=== PATIENT | female | born 1995 | race Caucasian/White ===

== ENCOUNTER 2019-02-27 19:15 | Emergency (ER) | payer OTHER ==
[~2019-02-27] VITALS: Ht 165.1 cm; Wt 82.2 kg
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
[2019-02-27 19:55] LABS: BASOPHILS # (AUTO) 0.11 x10^3/uL (0-0.1); BASOPHILS % (AUTO) 1 % (0-1); EOSINOPHILS # (AUTO) 0.17 x10^3/uL (0-0.4); EOSINOPHILS % (AUTO) 2 % (1-7); LYMPHOCYTES # (AUTO) 3.33 x10^3/uL (1-3.4); LYMPHOCYTES % (AUTO) 31 % (22-44); MD NO; MEAN CORPUSCULAR HEMOGLOBIN 27.9 pg (27.0-34.8); MEAN CORPUSCULAR HGB CONC 32.2 g/dL (32.4-35.8); MEAN CORPUSCULAR VOLUME 86.6 fL (80-100); MEAN PLATELET VOLUME 8.4 fL (7.4-10.4); MONOCYTES # (AUTO) 0.72 x10^3/uL (0.2-0.8); MONOCYTES % (AUTO) 7 % (2-9); NEUTROPHILS % (AUTO) 60 % (42-75); PLATELET COUNT 405 x10^3/uL (130-400); RED BLOOD COUNT 4.69 x10^6/uL (3.82-5.3); RED CELL DISTRIBUTION WIDTH 15.1 % (9.6-15.2)
[2019-02-27 19:56] LABS: INTERNATIONAL NORMALIZED RATIO 0.95 (0.93-1.1)
[2019-02-27 19:58] LABS: ANION GAP 8 mmol/L (5-15); CALCIUM 9.5 mg/dL (8.5-10.1); CHLORIDE 107 mmol/L (98-107); CREATININE 0.89 mg/dL (0.55-1.02)
--- NOTE | 2019-02-27 20:08 | NUR ---
PT. IS OUT OF ROOM FOR IMAGING.
--- NOTE | 2019-02-27 20:41 | NUR ---
PT. RESTING ON GURNEY WITH NADN. DENIES NEEDS. VS UPDATED AND STABLE. CALL LIGHT IN REACH.
[2019-02-27 21:14] VITALS: BP 128/83
--- NOTE | 2019-02-27 21:20 | NUR ---
ORTHOSTATICS COMPLETED PER ORDER. PT. AMBULATORY DOWN LOMBARDI TO BR WITH STEADY GAIT. ORTHOS CHARTED AND REPORTED TO DR. ANDRES.
== END 2019-02-27 22:02 | disposition home or self-care (01) ==
LOC: ED 20:50
DX: O72.1 Other immediate postpartum hemorrhage (principal); Z87.891 Personal history of nicotine dependence
CPT/HCPCS: 36415; 76830; 80048; 82040; 85025; 85610; 99284